=== PATIENT | female | born 1955 | race African-American/Black ===

== ENCOUNTER 2018-01-22 02:14 | Emergency (ER) | payer BC ==
[~2018-01-22] VITALS: Ht 162.6 cm; Wt 85.3 kg
--- NOTE | 2018-01-22 02:49 | Emergency Room Report ---
History of Present Illness General Chief Complaint: Lower Extremity Injury Source: Patient Present Illness [facility] This is a 62-year-old female with no past medical history. She presents with chief complaint of right lower leg pain. Onset this morning. She woke up and had pain in that area. Now her lower leg felt numb. No trauma. No fever chills. No swelling. Not on any medication. No family history of DVT or PE. Allergies: Coded Allergies: No Known Allergies (Verified Allergy, Unknown, 03/25/07) Patient History Past Medical History: none, see triage record, old chart reviewed Past Surgical History: none Pertinent Family History: none Social History: Denies: smoking Last Menstrual Period: NA Now: No Immunizations: other Reviewed Nursing Documentation: PMH: Agreed, PSxH: Agreed Nursing Documentation-PMH Past Medical History: No Stated History Review of Systems Eye: Denies: eye pain, blurred vision ENT: Denies: ear pain, nose congestion, throat swelling Respiratory: Denies: cough, shortness of breath Cardiovascular: Denies: chest pain, palpitations Gastrointestinal: Denies: abdominal pain, diarrhea, nausea, vomiting Musculoskeletal: Denies: back pain, joint pain Skin: Denies: rash Neurological: Denies: headache, numbness Endocrine: Denies: increased thirst, increased urine Hematologic/Lymphatic: Denies: easy bruising All Other Systems: negative except mentioned in HPI Physical Exam Vital Signs Date Time Temp Pulse Resp B/P (MAP) Pulse Ox O2 Delivery O2 Flow Rate FiO2 01/22/18 02:19 97.9 60 18 133/86 98 Room Air 97.9 vitals normal Sp02 EP Interpretation: reviewed, normal General Appearance: well appearing, no apparent distress, alert Head: normocephalic, atraumatic Eyes: bilateral eye PERRL, bilateral eye EOMI ENT: hearing grossly normal, normal pharynx Neck: full range of motion, supple, no meningismus Respiratory: chest non-tender, lungs clear, normal breath sounds Cardiovascular #1: regular rate, rhythm, no murmur Gastrointestinal: normal bowel sounds, non tender, no mass, no organomegaly, no bruit, non-distended Musculoskeletal: back normal, gait/station normal, normal range of motion, tender - tenderness to left calf. No edema. Neurovascularly intact. Sensation normal. Psychiatric: mood/affect normal Skin: warm/dry Medical Decision Making Diagnostic Impression: Primary Impression: Paresthesia and pain of left extremity ER Course Patient with paresthesia of the lower extremity. No DVT or infection. no evidence of arterial occlusion. No trauma to indicate fracture. Was likely pinched nerve. We'll discharge home. Last Vital Signs Date Time Temp Pulse Resp B/P (MAP) Pulse Ox O2 Delivery O2 Flow Rate FiO2 01/22/18 02:19 97.9 60 18 133/86 98 Room Air 97.9 Status: improved Disposition: HOME, SELF-CARE Condition: Stable Additional Instructions: Follow-up with your doctor in 7 days. Return if symptom worsen. CARLOS ENRIQUE MARTINEZ M.D. Jan 22, 2018 02:49
[2018-01-22 03:30] VITALS: BP 133/86
--- NOTE | 2018-02-05 21:39 | Diagnostic Imaging Report ---
APPROVED REPORT CPT Code: 03573 Present Symptoms Lower Extremity Pain: Left LEFT LEG: Venous imaging reveals a patent deep venous system. There is no evidence of thrombus within the femoral, popliteal or tibial segments. The greater saphenous vein is also within normal limits. Doppler indicates normal spontaneous flow within these segments.
== END 2018-01-22 03:30 | disposition home or self-care (01) ==
LOC: EMR 03:00
DX: M79.605 Pain in left leg (principal); R20.2 Paresthesia of skin
CPT/HCPCS: 93971; 99282